=== PATIENT | female | born 1945 | race Caucasian/White ===

== ENCOUNTER 2021-01-29 19:04 | Inpatient (IN) | payer OTHER, MEDICARE ==
[2021-01-26 11:15] VITALS: BMI 34.0
[2021-01-29] MEDS: ENOXAPARIN NA (PORCINE) 30 MG/0.3 ML DISP.SYRIN SQ SCH (17:45)
[~2021-01-29 19:04] MED LIST: BACITRACIN 15 GM TUBE TOPICAL OINTMENT ONE; CEFAZOLIN 1 GM in DEXTROSE 5%-WATER - 50 ML IVPB SCH; DEXAMETHASONE SOD PHOSPHATE 4 MG/1 ML VIAL ONE; GLYCOPYRROLATE 0.2 MG/1 ML VIAL ONE; KETOROLAC TROMETHAMINE 30 MG/1 ML VIAL ONE; LIDOCAINE 1%/EPI 1:100000 (20 ML MULTI DOSE VIAL) ONE; LIDOCAINE HCL/PF 2% SDV 5ML VIAL ONE; METOPROLOL TARTRATE 5 MG/5 ML VIAL ONE; MIDAZOLAM HCL 2 MG/2 ML SINGLE DOSE VIAL ONE; MINERAL OIL 25 ML OIL ONE; ONDANSETRON 4 MG/2 ML VIAL IVPB PRN; ONDANSETRON 4 MG/2 ML VIAL IVPUSH PRN; ONDANSETRON 4 MG/2 ML VIAL ONE; POLYETHYLENE GLYCOL 3350 119 GM BTL PO PRN; PROMETHAZINE HCL 25 MG/1 ML VIAL IVPUSH PRN; PROPOFOL 20 ML ONE; SODIUM CHLORIDE 0.9% P/F 10 ML VIAL IJ ONE; ceFAZolin SODIUM 1 GM VIAL ONE; morphine SULFATE 4 MG/ML VIAL IVPUSH PRN; oxyCODONE HCL 5 MG TABLET PO PRN
[2021-01-29] MEDS ORDERED: DEXTROSE 5%-WATER - 50 ML IVPB ONE (21:42)
[2021-01-29] MEDS ORDERED: ceFAZolin SODIUM 1 GM VIAL ONE (21:42)
[2021-01-29] MEDS ORDERED: GABAPENTIN 300 MG CAPSULE PO SCH (22:00)
[2021-01-29] MEDS ORDERED: ALPRAZOLAM 1 MG PO SCH (22:00)
[2021-01-29] MEDS: CEFAZOLIN 1 GM in DEXTROSE 5%-WATER - 50 ML IVPB SCH (22:09)
[2021-01-29] MEDS: LORATADINE 10 MG TABLET PO SCH (23:10)
[2021-01-29] MEDS: LACTATED RINGERS SOLUTION 1,000 ML IV SCH (23:10)
[2021-01-30] MEDS ORDERED: DEXTROSE 5%-WATER - 50 ML IVPB ONE ×3 (05:46→20:41)
[2021-01-30] MEDS ORDERED: ceFAZolin SODIUM 1 GM VIAL ONE ×3 (05:46→20:40)
[2021-01-30] MEDS: CEFAZOLIN 1 GM in DEXTROSE 5%-WATER - 50 ML IVPB SCH ×3 (06:30→21:11)
[2021-01-30] MEDS: ENOXAPARIN NA (PORCINE) 30 MG/0.3 ML DISP.SYRIN SQ SCH ×2 (06:30→20:03)
[2021-01-30] MEDS: GABAPENTIN 300 MG CAPSULE PO SCH ×3 (07:24→21:12)
[2021-01-30] MEDS: FUROSEMIDE 20 MG TABLET (FP) PO SCH ×2 (07:31→09:45)
[2021-01-30] MEDS: PANTOPRAZOLE 40 MG TABLET PO SCH (07:31)
[2021-01-30] MEDS ORDERED: POLYETHYLENE GLYCOL (HEALTHYLAX) 3350 17 GM PACKET PO PRN (07:54)
[2021-01-30] MEDS: LACTOBACILLUS ACIDOPHILUS 1 TABLET PO SCH (09:43)
[2021-01-30] MEDS: LOSARTAN POTASSIUM 50 MG TABLET PO SCH (09:44)
[2021-01-30] MEDS: CITALOPRAM HYDROBROMIDE 20 MG TABLET PO SCH (09:44)
[2021-01-30] MEDS ORDERED: ALPRAZOLAM 1 MG PO SCH (10:00)
[2021-01-30] MEDS ORDERED: FUROSEMIDE 20 MG TABLET (FP) PO SCH (10:00)
[2021-01-30] MEDS ORDERED: PANTOPRAZOLE 40 MG TABLET PO SCH (10:00)
[2021-01-30] MEDS ORDERED: PT OWN MED DRAWER 7, Y5N ONE (10:49)
[2021-01-30] MEDS: ALPRAZOLAM 1 MG PO SCH ×2 (10:54→21:11)
[2021-01-30] MEDS ORDERED: ALPRAZolam 0.25 MG TABLET PO SCH (16:00)
[2021-01-30] MEDS: ALPRAZolam 0.25 MG TABLET PO PRN (16:14)
[2021-01-30] MEDS: LORATADINE 10 MG TABLET PO SCH (21:11)
[2021-01-31] MEDS: ALPRAZolam 0.25 MG TABLET PO PRN (02:01)
[2021-01-31] MEDS ORDERED: DEXTROSE 5%-WATER - 50 ML IVPB ONE ×3 (06:11→20:41)
[2021-01-31] MEDS ORDERED: ceFAZolin SODIUM 1 GM VIAL ONE ×3 (06:11→20:41)
[2021-01-31] MEDS ORDERED: PT OWN MED DRAWER 7, Y5N ONE ×4 (06:12→15:30)
[2021-01-31] MEDS: CEFAZOLIN 1 GM in DEXTROSE 5%-WATER - 50 ML IVPB SCH ×3 (06:14→22:42)
[2021-01-31] MEDS: GABAPENTIN 300 MG CAPSULE PO SCH ×3 (06:15→22:44)
[2021-01-31] MEDS: ENOXAPARIN NA (PORCINE) 30 MG/0.3 ML DISP.SYRIN SQ SCH ×2 (06:15→17:12)
[2021-01-31] MEDS: PANTOPRAZOLE 40 MG TABLET PO SCH (08:38)
[2021-01-31] MEDS: FUROSEMIDE 20 MG TABLET (FP) PO SCH (08:38)
[2021-01-31] MEDS ORDERED: REFRIGERATED ANITBIOTICS ONE (09:26)
[2021-01-31] MEDS: LACTOBACILLUS ACIDOPHILUS 1 TABLET PO SCH (10:00)
[2021-01-31] MEDS: CITALOPRAM HYDROBROMIDE 20 MG TABLET PO SCH (10:00)
[2021-01-31] MEDS: LOSARTAN POTASSIUM 50 MG TABLET PO SCH (10:01)
[2021-01-31] MEDS: ALPRAZOLAM 1 MG PO SCH ×2 (10:01→22:53)
[2021-01-31] MEDS: LACTATED RINGERS SOLUTION 1,000 ML IV SCH (13:13)
[2021-01-31] MEDS: LORATADINE 10 MG TABLET PO SCH (22:44)
[2021-02-01] MEDS: ALPRAZolam 0.25 MG TABLET PO PRN ×2 (01:01→17:02)
[2021-02-01] MEDS ORDERED: ceFAZolin SODIUM 1 GM VIAL ONE ×3 (05:51→20:56)
[2021-02-01] MEDS ORDERED: DEXTROSE 5%-WATER - 50 ML IVPB ONE ×3 (05:52→20:56)
[2021-02-01] MEDS: CEFAZOLIN 1 GM in DEXTROSE 5%-WATER - 50 ML IVPB SCH ×3 (05:59→21:38)
[2021-02-01] MEDS: PANTOPRAZOLE 40 MG TABLET PO SCH (06:00)
[2021-02-01] MEDS: ENOXAPARIN NA (PORCINE) 30 MG/0.3 ML DISP.SYRIN SQ SCH ×2 (06:00→17:02)
[2021-02-01] MEDS: LACTOBACILLUS ACIDOPHILUS 1 TABLET PO SCH (09:25)
[2021-02-01] MEDS: LOSARTAN POTASSIUM 50 MG TABLET PO SCH (09:25)
[2021-02-01] MEDS: GABAPENTIN 300 MG CAPSULE PO SCH ×3 (09:25→22:45)
[2021-02-01] MEDS: ALPRAZOLAM 1 MG PO SCH ×2 (09:26→22:45)
[2021-02-01] MEDS: CITALOPRAM HYDROBROMIDE 20 MG TABLET PO SCH (09:26)
[2021-02-01] MEDS: FUROSEMIDE 20 MG TABLET (FP) PO SCH (09:26)
[2021-02-01] MEDS: LORATADINE 10 MG TABLET PO SCH (22:45)
[2021-02-02] MEDS: ALPRAZolam 0.25 MG TABLET PO PRN (01:01)
[2021-02-02] MEDS ORDERED: ceFAZolin SODIUM 1 GM VIAL ONE (05:57)
[2021-02-02] MEDS ORDERED: DEXTROSE 5%-WATER - 50 ML IVPB ONE (05:58)
[2021-02-02] MEDS: CEFAZOLIN 1 GM in DEXTROSE 5%-WATER - 50 ML IVPB SCH (06:04)
[2021-02-02] MEDS: PANTOPRAZOLE 40 MG TABLET PO SCH (06:04)
[2021-02-02] MEDS: ENOXAPARIN NA (PORCINE) 30 MG/0.3 ML DISP.SYRIN SQ SCH ×2 (06:04→16:51)
[2021-02-02] MEDS: LOSARTAN POTASSIUM 50 MG TABLET PO SCH (10:23)
[2021-02-02] MEDS: ALPRAZOLAM 1 MG PO SCH ×2 (10:23→21:10)
[2021-02-02] MEDS: FUROSEMIDE 20 MG TABLET (FP) PO SCH (10:23)
[2021-02-02] MEDS: LACTOBACILLUS ACIDOPHILUS 1 TABLET PO SCH (10:23)
[2021-02-02] MEDS: CITALOPRAM HYDROBROMIDE 20 MG TABLET PO SCH (10:24)
[2021-02-02] MEDS: GABAPENTIN 300 MG CAPSULE PO SCH ×3 (10:24→21:11)
[2021-02-02] MEDS: LORATADINE 10 MG TABLET PO SCH (21:10)
[2021-02-03 05:33] VITALS: PULSE 78
[2021-02-03] MEDS: ENOXAPARIN NA (PORCINE) 30 MG/0.3 ML DISP.SYRIN SQ SCH (07:25)
[2021-02-03] MEDS: PANTOPRAZOLE 40 MG TABLET PO SCH (08:22)
[2021-02-03] MEDS: CITALOPRAM HYDROBROMIDE 20 MG TABLET PO SCH (09:46)
[2021-02-03] MEDS: LACTOBACILLUS ACIDOPHILUS 1 TABLET PO SCH (09:46)
[2021-02-03] MEDS: FUROSEMIDE 20 MG TABLET (FP) PO SCH (09:46)
[2021-02-03] MEDS: LOSARTAN POTASSIUM 50 MG TABLET PO SCH (09:46)
[2021-02-03] MEDS: GABAPENTIN 300 MG CAPSULE PO SCH (09:47)
[2021-02-03] MEDS: ALPRAZOLAM 1 MG PO SCH (10:24)
[2021-02-03 10:25] VITALS: BP 153/65; TEMP 98.4
== END 2021-02-03 10:28 | disposition home or self-care (01) | DRG 578 ==
LOC: FM/S 19:04 → FASUSAT 19:04 → FM/S 19:11 → FASUSAT 01-30 21:38
PROVIDERS: ADMIT Plastic Surgery; ATTEND Plastic Surgery
PROC: 0HBJXZZ Excision of Left Upper Leg Skin, External Approach (ICD-10-PCS; 2021-01-29)
PROC: 0HRLX74 Replacement of Left Lower Leg Skin with Autologous Tissue Substitute, Partial Thickness, External Approach (ICD-10-PCS; principal; 2021-01-29 16:28)
PROC: 0JBP0ZZ Excision of Left Lower Leg Subcutaneous Tissue and Fascia, Open Approach (ICD-10-PCS; 2021-01-29 16:28)
DX: C43.72 Malignant melanoma of left lower limb, including hip (principal); I10 Essential (primary) hypertension; F41.8 Other specified anxiety disorders; K21.9 Gastro-esophageal reflux disease without esophagitis
CPT/HCPCS: 94760; 97116-GP; 97162-GP